=== PATIENT | male | born 1995 | race Caucasian/White ===

== ENCOUNTER 2020-10-19 11:20 | Emergency (ER) | payer SELFPAY ==
[~2020-10-19] VITALS: Ht 175.3 cm; Wt 100.0 kg
[~2020-10-19 11:20] MED LIST: AMOXICILLIN875 MG OR; AUGMENTIN875TAB PO; NO; OTC COLD MEDS
[2020-10-19 14:30] VITALS: BP 136/88
== END 2020-10-19 14:30 | disposition home or self-care (01) | DRG 179 ==
LOC: ED 11:20
DX: U07.1 COVID-19 (principal)